=== PATIENT | female | born 1945 | race Caucasian/White ===

== ENCOUNTER 2017-08-10 04:49 | Inpatient (IN) | payer MEDICARE, OTHER ==
[~2017-08-10] VITALS: Ht 165.1 cm; Wt 54.9 kg
[2017-08-10] VITALS (12 sets, daily range): BP systolic 102–131; BP diastolic 52–74; PULSE 74–86; RESP 16–20; TEMP 97.5–98.2; O2SAT 94–100
[~2017-08-10 04:49] MED LIST: AMBI10TA PO; ANAS1 PO; BIOT10TA PO; CLAR500T95 PO; CYMB60CA PO; MOME17I; MYAM400T8 PO; RIFA300 PO; TOPI100 PO
[2017-08-10] MEDS ORDERED: ONDANSETRON HCL 4 MG/2 ML VIAL IV PUSH ONE (05:30)
--- NOTE | 2017-08-10 05:31 | PD ---
HPI Chief Complaint: Fall Time Seen by Provider: 05:22 Travel History International Travel<30 days: No Contact w/Intl Traveler<30days: No Traveled to known affect area: No History of Present Illness HPI 72-year-old female presents to the emergency department by private transportation for complaint of left-sided chest pain and shortness of breath. Patient states around midnight she had a non-syncopal slip and fall losing her balance and landing with her left chest wall against a table edge. Patient states since that time she's had marked pain on the left chest wall. Patient did take a leftover pain medication with minimal relief. Patient takes no blood thinning agents. Patient states she did not hit her head did not have loss of consciousness did not injure her neck. Patient denies any upper back pain abdominal pain and pelvis pain or extremity injury. Patient states pain is severe with movement or deep inspiratory effort. Patient is noted that she feel short of breath with activity or exertion. Patient states she has history of remote breast cancer with lumpectomy and chemotherapy remote bronchoscopy with accidental iatrogenic pneumothorax with chest tube and alpha-1 antitrypsin deficiency is followed by a specialist at [facility] as well as locally by Dr. Ganesh gomez her actuarial assistant. Patient denies any recent febrile illness no report of hemoptysis or productive cough. [facility] Past Medical History Narrative Medical Depression, breast cancer, chemotherapy, radiation therapy, lumpectomy, dyslipidemia, off 1 antitrypsin deficiency, pancreatitis, bronchiectasis; cholecystectomy appendectomy; no tobacco use; nursing notes reviewed Blood Disorders: No Depression: Yes Cancer: Yes (LEFT BREAST) Cardiovascular Problems: No High Cholesterol: Yes Chemotherapy: Yes (TAXOTERE CARBOPLATIN PROCEPTIN) Diabetes: No Endocrine: No Glaucoma: No Genitourinary: No Hepatitis: No Hiatal Hernia: No Hypertension: No Immune Disorder: No Medical other: Yes (HX PANCREATITIS) Musculoskeletal: Yes Reproductive: No Respiratory: Yes (BRONCHIECTASIS) Migraines: Yes Radiation Therapy: Yes Thyroid Disease: No ?: Not Past Surgical History Abdominal Surgery: Yes (CHOLECYSTECTOMY) Appendectomy: Yes Cholecystectomy: Yes Endocrine Surgery: Yes Eye Surgery: Yes (TEAR DUCT RECONSTRUCTION) Gynecologic Surgery: Yes (hysterectomy ) Oral Surgery: Yes (T & A) Pacemaker: No Other Surgery: Yes (LUMPECTOMY (L) BREAST) Social History Alcohol Use: Yes (DAILY) Tobacco Use: Yes Substance Use: No Allergies-Medications (Allergen,Severity, Reaction): Coded Allergies: ado-trastuzumab emtansine (Verified Allergy, Severe, EDEMA, NEUROPATHY, ) ampicillin (Verified Allergy, Severe, Hives, 08/10/17) PATIENT STATES SHE IS NOT ALLERGIC TO THIS MEDICINE, HER IS. simvastatin (Verified Allergy, Severe, STATINS - UNSPECIFIED, 08/10/17) trastuzumab (Verified Allergy, Severe, EDEMA, NEUROPATHY, 08/10/17) Reported Meds & Prescriptions Reported Meds & Active Scripts Active Reported Clarithromycin 500 Mg Tab 500 Mg PO BID Rifadin (Rifampin) 300 Mg Cap 300 Mg PO BID Myambutol (Ethambutol HCl) 400 Mg Tab 400 Mg PO TID Biotin 10 Mg Tab 10 Mg PO DAILY Nasonex (Mometasone Furoate) 17 Gm [place] 1 Spr NA DAILY Arimidex (Anastrozole) 1 Mg Tab 1 Mg PO HS Topamax (Topiramate) 100 Mg Tab 50 Mg PO DAILY Ambien (Zolpidem Tartrate) 10 Mg Tab 10 Mg PO HSPRN INSOMNIA Cymbalta (Duloxetine HCl) 60 Mg Cap 60 Mg PO DAILY Review of Systems Except as stated in HPI: all other systems reviewed are Neg General / Constitutional: No: Fever, Chills HENT: No: Congestion Cardiovascular: Positive: Chest Pain or Discomfort Respiratory: Positive: Shortness of Breath, Pleuritic Pain Gastrointestinal: No: Abdominal Pain Genitourinary: No: Flank Pain Musculoskeletal: No: Myalgias, Arthralgias Skin: No Rash Neurologic: No: Weakness Psychiatric: No: Anxiety Hematologic/Lymphatic: No: Easy Bruising Physical Exam Narrative GENERAL: Well-developed well-nourished elderly female in no acute respiratory distress intermittent splinting respiration with deep breath; GCS 15 SKIN: Warm and dry. HEAD: Normocephalic. Atraumatic no scalp soft tissue swelling. EYES: No scleral icterus. No injection or drainage. NECK: Supple, trachea midline. No JVD or lymphadenopathy. No midline tenderness to direct palpation along the cervical spine and no bony step-off. CARDIOVASCULAR: Regular rate and rhythm without murmurs, gallops, or rubs. RESPIRATORY: Breath sounds equal bilaterally; left-sided diminished breath sounds and palpable crepitus consistent with subcutaneous emphysema. No accessory muscle use. GASTROINTESTINAL: Abdomen soft, non-tender, nondistended. MUSCULOSKELETAL: No cyanosis, or edema. No pressure lower extremity numbness tingling weakness or deformity. Pulses 2+ to palpation. BACK: Nontender without obvious deformity. Mild upper medial left flank abrasion ecchymosis without reproducible CVA tenderness. Data Data Last Documented VS Vital Signs Date Time Temp Pulse Resp B/P (MAP) Pulse Ox O2 Delivery O2 Flow Rate FiO2 08/10/17 07:28 86 16 131/71 (91) 98 Nasal Cannula 2.00 08/10/17 04:56 97.6 Orders Orders ^ Saline [place] (08/10/17 05:22) Complete Blood Count With Diff (08/10/17 05:22) Act Partial Throm Time (Ptt) (08/10/17 05:22) Prothrombin Time / Inr (Pt) (08/10/17 05:22) Basic Metabolic Panel (Bmp) (08/10/17 05:22) Urinalysis - C+S If Indicated (08/10/17 05:22) Ondansetron Inj (Zofran Inj) (08/10/17 05:30) Chest, Expiration Only (08/10/17 ) Ct Thorax/ Chest Wo Iv Contras (08/10/17 06:11) Morphine Inj (Morphine Inj) (08/10/17 06:15) Sodium Chlor 0.9% 1000 Ml Inj (Ns 1000 M (08/10/17 07:00) Lidocaine Pf 1% Inj (Xylocaine-Mpf 1% In (08/10/17 07:00) Lidocaine Pf 1% Inj (Xylocaine-Mpf 1% In (08/10/17 07:00) Morphine Inj (Morphine Inj) (08/10/17 07:15) Chest, Single Ap (08/10/17 ) Electrocardiogram (08/10/17 ) Admit Order (Ed Use Only) (08/10/17 ) [employer] / Telemetry JI.Q8H (08/10/17 07:33) Diet Npo (08/10/17 Breakfast) Activity Bed Rest (08/10/17 07:33) Notify Dr: Other (08/10/17 07:33) Labs Laboratory Tests Test 08/10/17 05:30 White Blood Count 10.8 TH/MM3 Red Blood Count 4.56 MIL/MM3 Hemoglobin 13.7 GM/DL Hematocrit 41.1 % Mean Corpuscular Volume 90.2 FL Mean Corpuscular Hemoglobin 30.0 PG Mean Corpuscular Hemoglobin Concent 33.3 % Red Cell Distribution Width 13.7 % Platelet Count 253 TH/MM3 Mean Platelet Volume 8.9 FL Neutrophils (%) (Auto) 84.8 % Lymphocytes (%) (Auto) 8.5 % Monocytes (%) (Auto) 4.6 % Eosinophils (%) (Auto) 0.4 % Basophils (%) (Auto) 1.7 % Neutrophils # (Auto) 9.2 TH/MM3 Lymphocytes # (Auto) 0.9 TH/MM3 Monocytes # (Auto) 0.5 TH/MM3 Eosinophils # (Auto) 0.0 TH/MM3 Basophils # (Auto) 0.2 TH/MM3 CBC Comment DIFF FINAL Differential Comment Prothrombin Time 10.7 SEC Prothromb Time International Ratio 1.1 RATIO Activated Partial Thromboplast Time 24.9 SEC Blood Urea Nitrogen 26 MG/DL Creatinine 0.64 MG/DL Random Glucose 116 MG/DL Calcium Level 8.5 MG/DL Sodium Level 140 MEQ/L Potassium Level 3.7 MEQ/L Chloride Level 108 MEQ/L Carbon Dioxide Level 24.6 MEQ/L Anion Gap 7 MEQ/L Estimat Glomerular Filtration Rate 92 ML/MIN [facility] Medical Decision Making Medical Screen Exam Complete: Yes Emergency Medical Condition: Yes Medical Record Reviewed: Yes Interpretation(s) Last Impressions Chest CT 08/10/17 0611 Signed Impressions: Service Date/Time: Thursday, August 10, 2017 06:29 - CONCLUSION: 1. Large left pneumothorax. There is a pneumomediastinum. 2. Emphysematous change in the lower lungs. 3. Bronchiectasis in the lower lobes. 4. Left ninth and 10th rib fractures. Ramon Jenkins MD Chest X-Ray 08/10/17 0000 Signed Impressions: Service Date/Time: Thursday, August 10, 2017 05:42 - CONCLUSION: 1. Suspected large left pneumothorax with extensive subcutaneous emphysema. 2. Consolidation or atelectasis in the upper lungs bilaterally. The left upper lung is in the left perihilar region. Ramon Jenkins MD CBC & BMP Diagram 08/10/17 05:30 Calcium Level 8.5 Vital Signs Date Time Temp Pulse Resp B/P (MAP) Pulse Ox O2 Delivery O2 Flow Rate FiO2 08/10/17 07:28 86 16 131/71 (91) 98 Nasal Cannula 2.00 08/10/17 06:40 75 16 115/59 (77) 98 Nasal Cannula 2.00 08/10/17 06:10 84 16 104/64 (77) 99 Nasal Cannula 2.00 08/10/17 05:05 16 100 Room Air 08/10/17 05:00 75 16 115/58 (77) 100 08/10/17 04:56 97.6 81 20 130/61 (84) 95 Differential Diagnosis Chest wall contusion displaced rib fracture pneumothorax hemopneumothorax pneumomediastinum subcutaneous emphysema renal contusion pelvic contusion Narrative Course Patient placed on monitor IV access obtained specimens collected and sent for resulting imaging studies ordered; suspect patient has pneumothorax and will require chest tube placement; patient is not tachypneic, tachycardic, is normotensive with RA O2 saturations 92-98%. Expiratory chest x-ray shows extensive subcutaneous emphysema with what appears to be moderate size apical pneumothorax and possible scar tissue that the parent to the left chest wall with at least 2 minimally displaced rib fractures ; patient's blood pressure remains stable oxygenation remains 90-96% on room air patient is not tachycardic and does not have increased respiratory rate in order to clarify whether or not this is a emphysematous bleb with history of alpha-1 trypsin deficiency and COPD versus a loculated pneumothorax versus a moderate-sized pneumothorax with impaired disability related to the subcutaneous emphysema is unclear CT thorax without contrast ordered stat and patient's imaging study be discussed with radiologist. Fall from Dr. Schmidt reports left-sided pneumothorax which was noted on x-ray chest x-ray concurs with imaging with CT as this time patient appears stable for her definitive imaging. Patient is given a dose of Zofran 4 mg IV as well as a dose of morphine sulfate 2 mg iv pain relief. @ 6:[address] #28 [place] thoracostomy tube placed without incident post chest tube insertion chest x-ray shows tube in the sixth intercostal space with good lung reexpansion. Patient tolerated procedure well. Vital signs heart rate 81 O2 saturation 97% blood pressure Procedures Procedure Narrative CHEST TUBE THORACOSTOMY: The left chest was prepped with Betadine and sterilely draped. The area of the fifth intercostal interspace was infiltrated with 1% lidocaine plain. A 2 centimeter incision was made with a scalpel at the fifth intercostal space. Blunt dissection to the fourth intercostal interspace performed and the pleura was punctured with immediate vicente of air. Finger was inserted in the space and thoracostomy tube was placed, directed posteriorly and superiorly. Tube draining well. The thoracostomy tube was secured with suture. Sterile seal dressing placed. Patient tolerated procedure well. Physician Communication Physician Communication discussed with Dr Alford --- admit to his service to med surg w/ telemetry Diagnosis Primary Impression: Pneumothorax on left Additional Impressions: Pneumomediastinum Multiple fractures of ribs of left side Qualified Codes: S22.42XA - Multiple fractures of ribs, left side, initial encounter for closed fracture Emphysema lung Qualified Codes: J43.9 - Emphysema, unspecified [id number] deficiency Admitting Information Admitting Physician Requests: Admit Seema Fischer MD Aug 10, 2017 05:31
[2017-08-10 05:40] LABS: AUTOMATED NEUTROPHIL # 9.2 TH/MM3 (1.8-7.7); BASOPHIL # 0.2 TH/MM3 (0-0.2); BASOPHIL % 1.7 % (0.0-2.0); EOSINOPHIL % 0.4 % (0.0-4.0); HEMATOCRIT 41.1 % (35.0-46.0); HEMOGLOBIN 13.7 GM/DL (11.6-15.3); LYMPH % 8.5 % (9.0-44.0); LYMPHOCYTE # 0.9 TH/MM3 (1.0-4.8); MEAN CELL VOLUME 90.2 FL (80.0-100.0); MEAN CORPUSCULAR HGB CONC 33.3 % (32.0-36.0); MEAN PLATELET VOLUME 8.9 FL (7.0-11.0); MONO % 4.6 % (0.0-8.0); MONOCYTE # 0.5 TH/MM3 (0-0.9); NEUT % 84.8 % (16.0-70.0); PLATELET COUNT 253 TH/MM3 (150-450); RED BLOOD COUNT 4.56 MIL/MM3 (4.00-5.30); RED CELL DISTRIBUTION WIDTH 13.7 % (11.6-17.2); WHITE BLOOD COUNT 10.8 TH/MM3 (4.0-11.0)
[2017-08-10 05:50] LABS: CALCIUM 8.5 MG/DL (8.5-10.1)
[2017-08-10 05:51] LABS: BICARBONATE 24.6 MEQ/L (21.0-32.0)
[2017-08-10 05:52] LABS: INTERNATIONAL NORMALIZED RATIO 1.1 RATIO; PROTHROMBIN TIME - PATIENT 10.7 SEC (9.8-11.6)
[2017-08-10 05:54] LABS: CREATININE 0.64 MG/DL (0.50-1.00)
[2017-08-10] MEDS ORDERED: MORPHINE SULFATE 2 MG/ML INJ IV PUSH ONE ×2 (06:15→07:15)
--- NOTE | 2017-08-10 06:27 | RADRPT ---
EXAM DATE/TIME: 08/10/2017 05:42 [facility] COMPARISON: No previous studies available for comparison. INDICATIONS : Evaluate for left pneumothorax. Left sided chest pain post fall today MEDICAL HISTORY : Carcinoma, breast. SURGICAL HISTORY : Left breast lumpectomy ENCOUNTER: Initial ACUITY: 1 day PAIN SCORE: 10/10 LOCATION: Left chest FINDINGS: There is a suspected large pneumothorax seen at the left upper chest. There is extensive subcutaneous emphysema seen bilaterally being worse on the left. There is atelectasis or consolidation at the lef t upper lung in the left perihilar region. There is also increased density at the right upper lung. T here is more linear density seen at the right base. CONCLUSION: 1. Suspected large left pneumothorax with extensive subcutaneous emphysema. 2. Consolidation or atelectasis in the upper lungs bilaterally. The left upper lung is in the left pe rihilar region. Ramon Jenkins MD on August 10, 2017 at 6:13 Board Certified Radiologist. This report was verified electronically.
--- NOTE | 2017-08-10 06:52 | RADRPT ---
EXAM DATE/TIME: 08/10/2017 06:29 [facility] COMPARISON: No previous studies available for comparison. INDICATIONS : Stattus post fall 5 hours ago. Mid back and chest pain. Abnormal CXR RADIATION DOSE: 6.22 CTDIvol (mGy) MEDICAL HISTORY : Carcinoma, breast. Pancreatitis. bronchiectasis SURGICAL HISTORY : Appendectomy. Cholecystectomy.Hysterectomy. Lumpectomy left breast ENCOUNTER: Initial ACUITY: 1 day PAIN SCALE: 8/10 LOCATION: Bilateral middle back and chest TECHNIQUE: Volumetric scanning of the chest was performed. Using automated exposure control and adjustment of t he mA and/or kV according to patient size, radiation dose was kept as low as reasonably achievable to obtain optimal diagnostic quality images. DICOM format image data is available electronically for r eview and comparison. Follow-up recommendations for detected pulmonary nodules are based at a minimum on nodule size and pa tient risk factors according to Fleischner Society Guidelines. FINDINGS: LUNGS: There is a large pneumothorax seen in the left upper and anterior chest. Significant emphysematous ch javed in the upper lungs is not seen. There is emphysematous change in the lower lungs especially on t he right. There is increased density at the left upper lung likely related to some atelectasis given the pneumothorax. There some patchy density in the right midlung likely related to atelectasis or con solidation. There is bronchiectasis seen at the lower lobes bilaterally. There is a small 4 mm nodule seen in the posterior medial left chest likely related to the bronchiectasis and inflammatory change . PLEURAE: There is a large left pneumothorax. MEDIASTINUM: There is pneumomediastinum seen over the upper mediastinum. Significant adenopathy is not seen. AXILLAE: Subcutaneous emphysematous change is seen in the axillary regions and the chest bilateral edema being more prominent on the left. MUSCULOSKELETAL: There are posterior left ninth and 10th rib fractures. MISCELLANEOUS: The visualized upper abdominal organs demonstrate no acute abnormality. CONCLUSION: 1. Large left pneumothorax. There is a pneumomediastinum. 2. Emphysematous change in the lower lungs. 3. Bronchiectasis in the lower lobes. 4. Left ninth and 10th rib fractures. Ramon Jenkins MD on August 10, 2017 at 6:43 Board Certified Radiologist. This report was verified electronically.
[2017-08-10] MEDS ORDERED: LIDOCAINE HCL 1% PF 10 ML VIAL INFIL ONE (07:00)
[2017-08-10] MEDS ORDERED: LIDOCAINE HCL 1% PF 30 ML VIAL INFIL ONE (07:00)
--- NOTE | 2017-08-10 07:44 | RADRPT ---
EXAM DATE/TIME: 08/10/2017 07:20 [facility] COMPARISON: CT THORAX W/O CONTRAST, August 10, 2017, 6:29. CHEST EXPIRATION ONLY, August 10, 2017, 5:42. INDICATIONS : Post chest tube placement MEDICAL HISTORY : Carcinoma, breast. Pancreatitis. bronchiectasis SURGICAL HISTORY : Appendectomy. Cholecystectomy.Hysterectomy. Lumpectomy left breast ENCOUNTER: Subsequent ACUITY: 1 day PAIN SCORE: 0/10 LOCATION: Left chest FINDINGS: The examination demonstrates a chest tube in place in the left lung apex. There is resolution of the left apical pneumothorax. There is extensive subcutaneous emphysema. The heart is normal in size. There are COPD changes. There are bilateral upper lobe infiltrates. CONCLUSION: 1. A frontal placement of a chest tube with resolution of left apical pneumothorax. 2. Advanced COPD changes. 3. Bilateral upper lobe infiltrates which appear inflammatory. Bala Pack MD on August 10, 2017 at 7:41 Board Certified Radiologist. This report was verified electronically.
[2017-08-10] MEDS: SODIUM CHLOR 0.9% 1000 ML INJ 1,000 ML IV SCH ×2 (08:48→14:52)
[2017-08-10] MEDS ORDERED: SODIUM CHLORIDE 0.9% FLUSH 10 ML FLUSH IV FLUSH PRN (10:45)
[2017-08-10] MEDS: oxyCODONE/ACETAMINOPHEN 10 MG/325 MG TAB PO PRN ×2 (11:27→21:52)
[2017-08-10] MEDS ORDERED: ENALAPRILAT 1.25 MG/ML VIAL IV PUSH PRN (12:00)
[2017-08-10] MEDS: REMOVE OLD PATCH T-DERMAL SCH (12:00)
[2017-08-10] MEDS ORDERED: oxyCODONE/ACETAMINOPHEN 5 MG/325 MG TAB PO PRN (12:00)
[2017-08-10] MEDS ORDERED: ONDANSETRON HCL 4 MG/2 ML VIAL IV PUSH PRN (12:00)
[2017-08-10] MEDS: KETOROLAC TROMETHAMINE 30 MG/ML (IVP) VIAL IV PUSH SCH ×2 (13:05→17:23)
[2017-08-10] MEDS: LIDOCAINE HCL 5% PATCH T-DERMAL SCH (13:15)
[2017-08-10 13:58] LABS: BILIRUBIN, URINE NEG (NEG); BLOOD, URINE NEG (NEG); GLUCOSE,URINE NEG (NEG); KETONE, URINE NEG (NEG); NITRITE,URINE NEG (NEG); URINE LEUKOCYTE ESTERASE TRACE (NEG)
[2017-08-10 14:17] LABS: URINE COLOR YELLOW (YELLW/STRAW)
[2017-08-10 14:18] LABS: MUCUS URINE OCC /lpf (OCC); SQUAMOUS EPITHELIAL CELL URINE 0-5 /hpf (0-5)
[2017-08-10 14:20] LABS: AMORPHOUS SEDIMENT, URINE SMALL; BACTERIA, URINE OCC /hpf
[2017-08-10] MEDS ORDERED: RESP: ALBUTEROL 2.5 MG/IPRATROPIUM 0.5 MG NEB (PRN) NEB (14:45)
[2017-08-10] MEDS: METHOCARBAMOL 500 MG TAB PO SCH ×2 (14:46→21:50)
[2017-08-10] MEDS ORDERED: AZIT250T3 PO (15:29)
[2017-08-10] MEDS ORDERED: CYMB60CA PO (15:29)
[2017-08-10] MEDS ORDERED: TOPI50TA7 PO ×2 (15:29)
[2017-08-10] MEDS ORDERED: IMIT100T PO (15:29)
[2017-08-10] MEDS ORDERED: ZOLP5TAB3 PO (15:29)
[2017-08-10] MEDS ORDERED: SYMB80AE INH (15:29)
[2017-08-10] MEDS ORDERED: RESP: ALBUTEROL 2.5 MG/IPRATROPIUM 0.5 MG NEB (SCH) NEB (16:00)
[2017-08-10] MEDS: FAMOTIDINE 20 MG TAB PO SCH (21:50)
[2017-08-10] MEDS: DOCUSATE SODIUM 100 MG CAP PO SCH (21:52)
[2017-08-10] MEDS: MAGNESIUM HYDROXIDE SUSP 30 ML CUP PO SCH (21:57)
[2017-08-10] MEDS: RESP: ALBUTEROL 2.5 MG/IPRATROPIUM 0.5 MG NEB (SCH) NEB (22:49)
[2017-08-11] MEDS: KETOROLAC TROMETHAMINE 30 MG/ML (IVP) VIAL IV PUSH SCH ×4 (00:05→17:19)
[2017-08-11 00:49] VITALS: BP 95/50; PULSE 80; RESP 20; TEMP 98.8; O2SAT 94
[2017-08-11] MEDS: oxyCODONE/ACETAMINOPHEN 10 MG/325 MG TAB PO PRN ×3 (03:23→20:59)
[2017-08-11] MEDS: SODIUM CHLOR 0.9% 1000 ML INJ 1,000 ML IV SCH ×2 (03:25→17:20)
[2017-08-11 04:16] LABS: AUTOMATED NEUTROPHIL # 4.6 TH/MM3 (1.8-7.7); BASOPHIL % 0.6 % (0.0-2.0); EOSINOPHIL # 0.3 TH/MM3 (0-0.4); EOSINOPHIL % 4.3 % (0.0-4.0); HEMATOCRIT 37.6 % (35.0-46.0); HEMOGLOBIN 12.9 GM/DL (11.6-15.3); LYMPH % 27.9 % (9.0-44.0); LYMPHOCYTE # 2.1 TH/MM3 (1.0-4.8); MEAN CELL VOLUME 92.7 FL (80.0-100.0); MEAN CORPUSCULAR HEMOGLOBIN 31.9 PG (27.0-34.0); MEAN CORPUSCULAR HGB CONC 34.4 % (32.0-36.0); MEAN PLATELET VOLUME 8.9 FL (7.0-11.0); MONO % 5.9 % (0.0-8.0); MONOCYTE # 0.4 TH/MM3 (0-0.9); NEUT % 61.3 % (16.0-70.0); PLATELET COUNT 208 TH/MM3 (150-450); RED BLOOD COUNT 4.06 MIL/MM3 (4.00-5.30); RED CELL DISTRIBUTION WIDTH 14.4 % (11.6-17.2); WHITE BLOOD COUNT 7.5 TH/MM3 (4.0-11.0)
[2017-08-11 04:20] LABS: ALT (GPT) 19 U/L (10-53); AST (GOT) 24 U/L (15-37); BICARBONATE 25.2 MEQ/L (21.0-32.0); BLOOD UREA NITROGEN 14 MG/DL (7-18); CHLORIDE 110 MEQ/L (98-107); CREATININE 0.56 MG/DL (0.50-1.00); GLOMERULAR FILTRATION RATE 107 ML/MIN (>89); GLUCOSE,RANDOM 95 MG/DL (74-106); SODIUM (NA) 140 MEQ/L (136-145)
[2017-08-11 04:22] LABS: ALKALINE PHOSPHATASE 80 U/L (45-117); TOTAL BILIRUBIN ADULT 1.6 MG/DL (0.2-1.0); TOTAL PROTEIN 6.3 GM/DL (6.4-8.2)
[2017-08-11] MEDS: METHOCARBAMOL 500 MG TAB PO SCH ×3 (05:20→20:58)
[2017-08-11 05:58] VITALS: BP 97/51; PULSE 70; RESP 20; TEMP 98; O2SAT 97
--- NOTE | 2017-08-11 06:31 | RADRPT ---
EXAM DATE/TIME: 08/11/2017 06:15 [facility] COMPARISON: CHEST SINGLE AP, August 10, 2017, 7:20. INDICATIONS : Evaluate for pneumothorax- Left side chest tube MEDICAL HISTORY : Carcinoma, breast. Pancreatitis. Bronchiectasis SURGICAL HISTORY : Appendectomy. Cholecystectomy. Hysterectomy. Lumpectomy Left breast ENCOUNTER: Subsequent ACUITY: 2 days PAIN SCORE: 6/10 LOCATION: Bilateral chest FINDINGS: There is a minimal left pneumothorax seen. There is a left chest tube in place. This chest tube has b een pulled back since the prior exam. The pneumothorax measures 8 mm over the left apex. There is ext ensive subcutaneous emphysema seen on the left chest and the neck bilaterally. There is increased den sity at the left base. There is an increased density at the medial right upper lung. The heart size i s normal. CONCLUSION: 1. Minimal left pneumothorax. Left chest tube has been pulled back and is seen over the lateral mid c hest at this time. 2. Left lower lobe and right upper lung consolidation or atelectasis. Ramon Jenkins MD on August 11, 2017 at 6:25 Board Certified Radiologist. This report was verified electronically.
[2017-08-11 08:00] VITALS: BP 103/57; PULSE 81; RESP 18; TEMP 98; O2SAT 93
[2017-08-11] MEDS: MAGNESIUM HYDROXIDE SUSP 30 ML CUP PO SCH ×2 (08:52→20:58)
[2017-08-11] MEDS: DOCUSATE SODIUM 100 MG CAP PO SCH ×2 (08:52→20:57)
[2017-08-11] MEDS: FAMOTIDINE 20 MG TAB PO SCH ×2 (08:53→20:58)
[2017-08-11] MEDS: LIDOCAINE HCL 5% PATCH T-DERMAL SCH (08:55)
[2017-08-11] MEDS: REMOVE OLD PATCH T-DERMAL SCH (08:56)
[2017-08-11] MEDS: RESP: ALBUTEROL 2.5 MG/IPRATROPIUM 0.5 MG NEB (SCH) NEB ×3 (09:01→19:40)
[2017-08-11] MEDS ORDERED: PNEUMOCOCCAL POLYVALENT INJ 25 MCG/0.5 ML SYR IM ONE (10:00)
[2017-08-11 12:00] VITALS: BP 111/53; PULSE 71; RESP 18; TEMP 98.3; O2SAT 98
--- NOTE | 2017-08-11 12:24 | MH ---
cc: CRUZ AREVALO DATE OF ADMISSION: 08/10/2017 HISTORY OF PRESENT ILLNESS: This is a 72-year-old female who presented to the emergency room after slipping and falling. She fell onto the left chest. She was evaluated in the emergency room and found to have multiple rib fractures and a pneumothorax. The trauma service was requested for admission. The patient had a chest tube placed in the emergency room. She complains of left chest pain and pain with deep inspiration. PAST MEDICAL HISTORY: She has a past medical history significant for: 1. Depression. 2. Mriwa-0-[id number] deficiency. 3. Pancreatitis. PAST SURGICAL HISTORY: Significant for: 1. Lumpectomy. 2. Cholecystectomy. 3. Appendectomy. SOCIAL HISTORY: She does not smoke. She does drink alcohol. MEDICATIONS AT HOME: Can be obtained from the medical record. ALLERGIES: 1. AMPICILLIN. 2. SIMVASTATIN. FAMILY HISTORY: Noncontributory. PHYSICAL EXAMINATION: GENERAL: On exam, she is lying in bed in no acute distress. HEAD, EYES, EARS, NOSE, THROAT: Her pupils are equal and reactive. NECK: Trachea is midline. LUNGS: Respirations are clear. CHEST: Positive for crepitus. Chest tube in place on the left. GASTROINTESTINAL: Soft and nontender. NEUROLOGICAL: Nonfocal. MUSCULOSKELETAL: No deformities. RADIOLOGICAL STUDIES: CT of the chest reveals a left pneumothorax with left-sided rib fractures. ASSESSMENT: This is a patient status post fall with left pneumothorax and chest tube in place. RECOMMENDATIONS / PLAN: 1. Will provide pain management. 2. Will repeat chest x-ray. 3. Monitor pulmonary status. MD CHANO Gallegos/JERMAINE /11:53 AM /12:14 PM
--- NOTE | 2017-08-11 13:14 | RADRPT ---
EXAM DATE/TIME: 08/11/2017 12:47 [facility] COMPARISON: CHEST SINGLE AP, August 11, 2017, 6:15. INDICATIONS : Status post CT removal. MEDICAL HISTORY : Carcinoma, breast. Pancreatitis. Bronchiectasis SURGICAL HISTORY : Appendectomy. Cholecystectomy. Hysterectomy. Lumpectomy Left breast ENCOUNTER: Subsequent ACUITY: 2 days PAIN SCORE: 6/10 LOCATION: Bilateral chest FINDINGS: Single AP view of the chest. Left-sided chest tube no longer seen. Extensive subcutaneous emphysema a gain seen left greater than right. Small left apical pneumothorax unchanged. Patchy left lung base op acity unchanged. CONCLUSION: Left-sided chest tube no longer seen. Small left pneumothorax unchanged. Patchy left lung base opacit y also unchanged. Myron Norman MD on August 11, 2017 at 13:09 Board Certified Radiologist. This report was verified electronically.
--- NOTE | 2017-08-11 13:18 | HHI.PR ---
Subjective Subjective Notes CT got pulled on throughout the night and no longer in optimal positioning Denies SOB Complains of left rib pain Objective Vitals/I&O Vital Signs Date Time Temp Pulse Resp B/P (MAP) Pulse Ox O2 Delivery O2 Flow Rate FiO2 08/11/17 12:00 98.3 71 18 111/53 (72) 98 08/10/17 20:58 21 08/10/17 14:49 Nasal Cannula 2.00 Labs Laboratory Tests Test 08/10/17 13:45 08/11/17 03:50 Urine Color YELLOW Urine Turbidity CLEAR Urine pH 6.0 Urine Specific [place] 1.023 Urine Protein NEG Urine Glucose (UA) NEG Urine Ketones NEG Urine Occult Blood NEG Urine Nitrite NEG Urine Bilirubin NEG Urine Leukocyte Esterase TRACE Urine WBC 3-5 Urine Squamous Epithelial Cells 0-5 Urine Amorphous Sediment SMALL Urine Bacteria OCC Urine Mucus OCC Microscopic Urinalysis Comment CULT NOT INDICATED White Blood Count 7.5 Red Blood Count 4.06 Hemoglobin 12.9 Hematocrit 37.6 Mean Corpuscular Volume 92.7 Mean Corpuscular Hemoglobin 31.9 Mean Corpuscular Hemoglobin Concent 34.4 Red Cell Distribution Width 14.4 Platelet Count 208 Mean Platelet Volume 8.9 Neutrophils (%) (Auto) 61.3 Lymphocytes (%) (Auto) 27.9 Monocytes (%) (Auto) 5.9 Eosinophils (%) (Auto) 4.3 Basophils (%) (Auto) 0.6 Neutrophils # (Auto) 4.6 Lymphocytes # (Auto) 2.1 Monocytes # (Auto) 0.4 Eosinophils # (Auto) 0.3 Basophils # (Auto) 0.0 CBC Comment DIFF FINAL Differential Comment Blood Urea Nitrogen 14 Creatinine 0.56 Random Glucose 95 Total Protein 6.3 Albumin 3.0 Calcium Level 8.0 Alkaline Phosphatase 80 Aspartate Amino Transf (AST/SGOT) 24 Alanine Aminotransferase (ALT/SGPT) 19 Total Bilirubin 1.6 Sodium Level 140 Potassium Level 3.9 Chloride Level 110 Carbon Dioxide Level 25.2 Anion Gap 5 Estimat Glomerular Filtration Rate 107 Radiology Last Impressions Chest X-Ray 08/11/17 0600 Signed Impressions: Service Date/Time: Friday, August 11, 2017 06:15 - CONCLUSION: 1. Minimal left pneumothorax. Left chest tube has been pulled back and is seen over the lateral mid chest at this time. 2. Left lower lobe and right upper lung consolidation or atelectasis. Ramon Jenkins MD Chest CT 08/10/17 0611 Signed Impressions: Service Date/Time: Thursday, August 10, 2017 06:29 - CONCLUSION: 1. Large left pneumothorax. There is a pneumomediastinum. 2. Emphysematous change in the lower lungs. 3. Bronchiectasis in the lower lobes. 4. Left ninth and 10th rib fractures. Ramon Jenkins MD Narrative Exam GENERAL: 72 year old well-nourished, well developed femle lying in bed. SKIN: Warm and dry. HEAD: Atraumatic. Normocephalic. EYES: PERRL. ENT: No nasal bleeding or discharge. Mucous membranes pink and moist. NECK: Trachea midline. No JVD. CARDIOVASCULAR: Regular rate and rhythm. RESPIRATORY: No accessory muscle use. Lungs clear and diminished to auscultation. Breath sounds equal bilaterally. Left lateral chest tube secured to pleura vac system at -20 cm suction. No air leak noted. Palpable SQ air extending from left neck to the abdomen. GASTROINTESTINAL: Abdomen soft, non-tender, nondistended. + BS. MUSCULOSKELETAL: Extremities without cyanosis, or edema. No obvious deformities. MAEW, + perfused NEUROLOGICAL: Awake and alert. Normal speech. A/P Assessment and Plan [place]: Tripped over a [employer] container in the dark, striking her left chest on the container. No LOC. Came to the hospital several hours later d/t increased pain. INJURIES LEFT rib fx (9,10) LEFT PTX LEFT pulmonary contusion Pneumomediastinum PMHx: Breast CA, lumpectomy, chemo. Alpha-1 antitrypsin deficiency. Bronchiectasis. ETOH. Smoker, COPD 08/10: LEFT CT placement Diet: Regular Pulm: IS. acapella. Nebs Pain: Percocet. Robaxin. Toradol IV. Lidoderm patch. Activity: OOB. PT ordered GI: Pepcid 20 mg BID Bowel: Colace. MOM. LBM: 0 DVT: SCD's LEFT rib fxs, LEFT PTX, LEFT pulmonary contusion, Pneumomediastinum Supportive care 08/10: LEFT CT placement CXR from this morning shows chest tube is almost completely retracted. Small apical PTX noted. Chest tube removed at bedside CXR post chest tube removal today and in a.m. Monitor for worsening PTX and need for repeat chest tube insertion Pain control Pulmonary toileting OOB-PT ordered Plan of care discussed with patient, family and RN at bedside. Case management consulted to assist with discharge planning. Iván Trent Aug 11, 2017 13:18
[2017-08-11 16:00] VITALS: BP 112/56; PULSE 71; RESP 18; TEMP 97.6; O2SAT 96
[2017-08-11 20:00] VITALS: BP 144/61; PULSE 83; RESP 18; TEMP 98.1; O2SAT 98
[2017-08-12] VITALS (9 sets, daily range): BP systolic 123–139; BP diastolic 59–72; PULSE 69–105; RESP 18; TEMP 97.5–98.4; O2SAT 91–98
[2017-08-12] MEDS: KETOROLAC TROMETHAMINE 30 MG/ML (IVP) VIAL IV PUSH SCH ×4 (00:35→17:43)
[2017-08-12] MEDS: SODIUM CHLOR 0.9% 1000 ML INJ 1,000 ML IV SCH ×2 (05:26→17:04)
[2017-08-12] MEDS: METHOCARBAMOL 500 MG TAB PO SCH ×3 (05:26→21:31)
--- NOTE | 2017-08-12 05:50 | RADRPT ---
EXAM DATE/TIME: 08/12/2017 04:48 This report includes an Addendum and supersedes previous reports for this exam. [facility] COMPARISON: CHEST SINGLE AP, August 11, 2017, 12:47. INDICATIONS : Follow up pneumothorax. MEDICAL HISTORY : Carcinoma, breast. Pancreatitis. Bronchiectasis SURGICAL HISTORY : Appendectomy. Cholecystectomy. Hysterectomy. Lumpectomy Left breast ENCOUNTER: Subsequent ACUITY: 3 days PAIN SCORE: 6/10 LOCATION: Bilateral chest FINDINGS: There continues to be a pneumothorax or the left apex measuring 1.9 cm. This appears mildly larger on the current exam. The lungs appear hyperinflated. There is increased density at the left base with s ilhouetting of the left hemidiaphragm. There is linear scarring or atelectasis at the right midlung a nd right lower lung. There is extensive emphysema seen over the lower neck regions bilaterally and ov er the lateral left chest. CONCLUSION: 1. Persistent pneumothorax that appears mildly larger on the right. 2. Left lower lobe atelectasis or consolidation. 3. Hyperinflated lungs. Ramon Jenkins MD on August 12, 2017 at 5:46 Board Certified Radiologist. This report was verified electronically. ADDENDUM: The pneumothorax is clearly on the left. It is described as being on the right in the impression. The pneumothorax is definite on the left. Ramon Jenkins MD on August 13, 2017 at 13:59 Board Certified Radiologist. This report was verified electronically.
[2017-08-12] MEDS: REMOVE OLD PATCH T-DERMAL SCH (09:00)
[2017-08-12] MEDS: LIDOCAINE HCL 5% PATCH T-DERMAL SCH (09:00)
[2017-08-12] MEDS: MAGNESIUM HYDROXIDE SUSP 30 ML CUP PO SCH ×2 (09:00→21:00)
[2017-08-12] MEDS: RESP: ALBUTEROL 2.5 MG/IPRATROPIUM 0.5 MG NEB (SCH) NEB ×3 (09:12→20:08)
[2017-08-12] MEDS: FAMOTIDINE 20 MG TAB PO SCH ×2 (10:31→21:31)
[2017-08-12] MEDS: DOCUSATE SODIUM 100 MG CAP PO SCH ×2 (10:31→21:00)
--- NOTE | 2017-08-12 13:01 | HHI.PR ---
Subjective Subjective Notes CXR today shows PTX is larger Denies SOB Objective Vitals/I&O Vital Signs Date Time Temp Pulse Resp B/P (MAP) Pulse Ox O2 Delivery O2 Flow Rate FiO2 08/12/17 12:00 98.4 102 18 134/72 (92) 93 08/12/17 09:16 Nasal Cannula 2.00 08/10/17 20:58 21 Labs Laboratory Tests Test 08/10/17 05:30 08/10/17 13:45 08/11/17 03:50 Prothrombin Time 10.7 SEC Prothromb Time International Ratio 1.1 RATIO Activated Partial Thromboplast Time 24.9 SEC Urine Color YELLOW Urine Turbidity CLEAR Urine pH 6.0 Urine Specific [place] 1.023 Urine Protein NEG mg/dL Urine Glucose (UA) NEG mg/dL Urine Ketones NEG mg/dL Urine Occult Blood NEG Urine Nitrite NEG Urine Bilirubin NEG Urine Leukocyte Esterase TRACE Urine WBC 3-5 /hpf Urine Squamous Epithelial Cells 0-5 /hpf Urine Amorphous Sediment SMALL Urine Bacteria OCC /hpf Urine Mucus OCC /lpf Microscopic Urinalysis Comment CULT NOT INDICATED White Blood Count 7.5 TH/MM3 Red Blood Count 4.06 MIL/MM3 Hemoglobin 12.9 GM/DL Hematocrit 37.6 % Mean Corpuscular Volume 92.7 FL Mean Corpuscular Hemoglobin 31.9 PG Mean Corpuscular Hemoglobin Concent 34.4 % Red Cell Distribution Width 14.4 % Platelet Count 208 TH/MM3 Mean Platelet Volume 8.9 FL Neutrophils (%) (Auto) 61.3 % Lymphocytes (%) (Auto) 27.9 % Monocytes (%) (Auto) 5.9 % Eosinophils (%) (Auto) 4.3 % Basophils (%) (Auto) 0.6 % Neutrophils # (Auto) 4.6 TH/MM3 Lymphocytes # (Auto) 2.1 TH/MM3 Monocytes # (Auto) 0.4 TH/MM3 Eosinophils # (Auto) 0.3 TH/MM3 Basophils # (Auto) 0.0 TH/MM3 CBC Comment DIFF FINAL Differential Comment Blood Urea Nitrogen 14 MG/DL Creatinine 0.56 MG/DL Random Glucose 95 MG/DL Total Protein 6.3 GM/DL Albumin 3.0 GM/DL Calcium Level 8.0 MG/DL Alkaline Phosphatase 80 U/L Aspartate Amino Transf (AST/SGOT) 24 U/L Alanine Aminotransferase (ALT/SGPT) 19 U/L Total Bilirubin 1.6 MG/DL Sodium Level 140 MEQ/L Potassium Level 3.9 MEQ/L Chloride Level 110 MEQ/L Carbon Dioxide Level 25.2 MEQ/L Anion Gap 5 MEQ/L Estimat Glomerular Filtration Rate 107 ML/MIN Radiology Last Impressions Chest X-Ray 08/12/17599 Signed Impressions: Service Date/Time: Saturday, August 12, 2017 04:48 - CONCLUSION: 1. Persistent pneumothorax that appears mildly larger on the right. 2. Left lower lobe atelectasis or consolidation. 3. Hyperinflated lungs. Ramon Jenkins MD Chest CT 08/10/17610 Signed Impressions: Service Date/Time: Thursday, August 10, 2017 06:29 - CONCLUSION: 1. Large left pneumothorax. There is a pneumomediastinum. 2. Emphysematous change in the lower lungs. 3. Bronchiectasis in the lower lobes. 4. Left ninth and 10th rib fractures. Ramon Jenkins MD Last Impressions Chest X-Ray 08/11/17599 Signed Impressions: Service Date/Time: Friday, August 11, 2017 06:15 - CONCLUSION: 1. Minimal left pneumothorax. Left chest tube has been pulled back and is seen over the lateral mid chest at this time. 2. Left lower lobe and right upper lung consolidation or atelectasis. Ramon Jenkins MD Chest CT 08/10/17610 Signed Impressions: Service Date/Time: Thursday, August 10, 2017 06:29 - CONCLUSION: 1. Large left pneumothorax. There is a pneumomediastinum. 2. Emphysematous change in the lower lungs. 3. Bronchiectasis in the lower lobes. 4. Left ninth and 10th rib fractures. Ramon Jenkins MD Narrative Exam GENERAL: 72 year old well-nourished, well developed female lying in bed. SKIN: Warm and dry. HEAD: Atraumatic. Normocephalic. ENT: No nasal bleeding or discharge. Mucous membranes pink and moist. NECK: Trachea midline. No JVD. CARDIOVASCULAR: Regular rate and rhythm. RESPIRATORY: No accessory muscle use. Lungs clear and diminished to auscultation. Breath sounds equal bilaterally. Palpable SQ air extending from left neck to the abdomen. GASTROINTESTINAL: Abdomen soft, non-tender, nondistended. + BS. MUSCULOSKELETAL: Extremities without cyanosis, or edema. No obvious deformities. MAEW, + perfused NEUROLOGICAL: Awake and alert. Normal speech. A/P Assessment and Plan [place]: Tripped over a [employer] container in the dark, striking her left chest on the container. No LOC. Came to the hospital several hours later d/t increased pain. INJURIES LEFT rib fx (9,10) LEFT PTX LEFT pulmonary contusion Pneumomediastinum PMHx: Breast CA, lumpectomy, chemo. Alpha-1 antitrypsin deficiency. Bronchiectasis. ETOH. Smoker, COPD 08/10: LEFT CT placement Diet: Regular Pulm: IS. acapella. Nebs Pain: Percocet. Robaxin. Toradol IV. Lidoderm patch. Activity: OOB. PT ordered GI: Pepcid 20 mg BID Bowel: Colace. MOM. LBM: 0 DVT: SCD's LEFT rib fxs, LEFT PTX, LEFT pulmonary contusion, Pneumomediastinum Supportive care 08/10: LEFT CT placement 08/11: LEFT CT dislodged and removed CXR today shows enlarging PTX Dr Franklin spoke with the Radiologist who agrees to put in a CT guided CT today Pain control Pulmonary toileting OOB-PT ordered Plan of care discussed with patient at bedside. Case management consulted to assist with discharge planning. Iván Trent Aug 12, 2017 13:01
[2017-08-12] MEDS ORDERED: LORazepam 2 MG/ML VIAL ONE (13:58)
--- NOTE | 2017-08-12 14:24 | PD.RAD ---
Post Procedure Progress Note Pre Procedure Diagnosis: (1) Pxnkh-8-jqeotgsdyaw deficiency (2) Pneumothorax on left (3) Multiple fractures of ribs of left side Post Procedure Diagnosis: (1) Qaswn-[id number] deficiency (2) Pneumothorax on left (3) Multiple fractures of ribs of left side Procedure Date: Aug 12, 2017 Supervising Radiologist: Jj Rocha Proceduralist/Assist: RT Sindi(R)() Anesthesia: Local, Analgesia Plan of Activity Patient to Unit: Nursing Unit Patient Condition: Good See PACS Report for procedural detail/treatment Drainage Procedure Procedure 1 Imaging Guidance: Fluoroscopy Side: Left Procedure Type: Chest Tube Non-Tunneled Procedure: Placement [place]: 10 Drainage: Pleurovac (40 cm H2O) Jj Rocha MD Aug 12, 2017 14:24
--- NOTE | 2017-08-12 16:02 | MB ---
cc: Malou ELIZALDE DATE OF CONSULTATION 08/12/2017 HISTORY OF THE PRESENT ILLNESS Ms. Ayoub a 72-year-old white female whom I have followed for several years with chronic bronchiectasis and alpha one antitrypsin deficiency. She is also followed annually by Dr. Jenkins at the [facility], an alpha-1 specialist. She was a former smoker of less than 10 pack years and quit smoking over 30 years ago. She presented to the hospital after a fall, had persistent pain in her left chest and mild shortness of breath. Chest x-ray revealed a pneumothorax about 50% on the left and a chest tube was inserted. She was transferred to the main hospital and admitted to Dr. Boyer on the trauma service. Since admission she has had pain which is controlled, really very little shortness of breath. No cough or congestion. No purulent sputum or hemoptysis. PAST MEDICAL HISTORY 1. Breast cancer in [address] Rodriguez. 2. Emphysema / bronchiectasis. 3. Alpha-1 antitrypsin deficiency. 4. 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 No recurrence of that recently. 5. She also had a history of pancreatitis after an ERCP in 2000. No significant prior cardiovascular history. PAST SURGICAL HISTORY 1. She has had a prior cholecystectomy. 2. And surgery on her colon in the for diverticulitis. 3. Her breast cancer was treated with a lumpectomy and radiation. ALLERGIES HERCEPTIN, STATINS AND SHE DID RECEIVE ALLERGY IMMUNOTHERAPY FOR SEVERAL YEARS IN THE PAST. FAMILY HISTORY Father of heart disease, was diabetic. Mother had chronic lung disease and heart disease related to smoking. Two sons in good health. SOCIAL HISTORY living with her who she cares for. He has a disability. Smoking noted. No significant alcohol use and no unusual animal exposures. REVIEW OF SYSTEMS Negative other than that noted above. PHYSICAL EXAMINATION GENERAL: Awake, alert, comfortable at rest. Minimal discomfort only with activity. No shortness of breath at rest. VITAL SIGNS: Afebrile, pulse is 80, respirations 18-22. LYMPHATICS: No adenopathy in the neck or supraclavicular region. CHEST: Extensive subcutaneous air. No crepitance with the rib fractures on the left. Chest somewhat diminished but no congestion. No rhonchi. Heel-to-toe Regular rhythm. No harsh murmur. EXTREMITIES: No edema or cyanosis. ASSESSMENT AND PLAN Ms. Ayoub presents with several fractured ribs on the left and a pneumothorax, traumatic. She has underlying COPD and bronchiectasis which is stable. We will continue her on aerosol therapy, try to maintain good mobilization of secretions with an incentive and p.r.n. EZ-PAP but in light of the trauma not be overly aggressive with the pulmonary toilet. Oxygen as needed to maintain adequate saturations and aerosolized bronchodilators. R. MD RAFAEL Kamara/KK /2:15 PM /3:32 PM
--- NOTE | 2017-08-12 16:41 | RADRPT ---
EXAM DATE/TIME: 08/12/2017 15:52 [facility] COMPARISON: No previous studies available for comparison. INDICATIONS : Left sided pigtail chest tube placement. MEDICAL HISTORY : Carcinoma, breast. Pancreatitis. Lumpectomy SURGICAL HISTORY : Appendectomy. Cholecystectomy. ENCOUNTER: Subsequent ACUITY: 3 days PAIN SCORE: 10/10 LOCATION: Left chest FINDINGS: Left chest tube has been placed, tip at the apex. Previously seen pneumothorax is resolved. Chest wal l emphysema again noted. Patchy consolidation again seen right mid lung. There is a questionable pleural reflection on the rig ht but I see some pulmonary vascular markings peripheral to it. CONCLUSION: 1. Left pneumothorax has resolved after chest tube placement. 2. Potential small loculated pneumothorax right mid lung developing. Chest x-ray surveillance recomme nded. Ramon Preciado MD on August 12, 2017 at 16:36 Board Certified Radiologist. This report was verified electronically.
[2017-08-12] MEDS: oxyCODONE/ACETAMINOPHEN 10 MG/325 MG TAB PO PRN ×2 (17:40→21:32)
[2017-08-13] VITALS (10 sets, daily range): BP systolic 116–138; BP diastolic 60–85; PULSE 75–104; RESP 18–20; TEMP 97.8–99.3; O2SAT 93–98
[2017-08-13] MEDS: KETOROLAC TROMETHAMINE 30 MG/ML (IVP) VIAL IV PUSH SCH ×4 (01:26→16:43)
[2017-08-13] MEDS: METHOCARBAMOL 500 MG TAB PO SCH ×3 (05:19→22:18)
[2017-08-13] MEDS: SODIUM CHLOR 0.9% 1000 ML INJ 1,000 ML IV SCH (05:34)
--- NOTE | 2017-08-13 07:12 | RADRPT ---
EXAM DATE/TIME: 08/13/2017 05:51 [facility] COMPARISON: CHEST EXPIRATION ONLY, August 12, 2017, 15:52. INDICATIONS : Short of breath, evaluate left side pneumothorax and chest tube MEDICAL HISTORY : Carcinoma, breast. Pancreatitis. SURGICAL HISTORY : Appendectomy. Cholecystectomy. lumpectomy ENCOUNTER: Subsequent ACUITY: 4 - 6 days PAIN SCORE: 3/10 LOCATION: Left chest FINDINGS: On the left, small caliber chest tube remains in place at the apex. No perceptible pneumothorax. Ther e is mild consolidation at the left base unchanged. Left chest wall emphysema persists. No pneumothorax on the right but there is increasing consolidation in the upper lobe. There are bullo us emphysematous changes again seen. Heart size stable, within normal limits. CONCLUSION: 1. No perceptible pneumothorax on either side. Left chest tube remains in place. 2. No significant change left base consolidation. 3. Worsening right upper lobe infiltrate. Ramon Preciado MD on August 13, 2017 at 7:08 Board Certified Radiologist. This report was verified electronically.
[2017-08-13] MEDS: RESP: ALBUTEROL 2.5 MG/IPRATROPIUM 0.5 MG NEB (SCH) NEB ×3 (07:47→19:12)
[2017-08-13] MEDS: REMOVE OLD PATCH T-DERMAL SCH (09:00)
[2017-08-13] MEDS: MAGNESIUM HYDROXIDE SUSP 30 ML CUP PO SCH ×2 (09:00→22:18)
[2017-08-13] MEDS: DOCUSATE SODIUM 100 MG CAP PO SCH ×2 (09:33→22:17)
[2017-08-13] MEDS: FAMOTIDINE 20 MG TAB PO SCH ×2 (09:33→22:17)
[2017-08-13] MEDS: LIDOCAINE HCL 5% PATCH T-DERMAL SCH (09:37)
[2017-08-13] MEDS ORDERED: AZITHROMYCIN 250 MG TAB PO SCH (13:00)
--- NOTE | 2017-08-13 13:51 | HHI.PR ---
Subjective Subjective Notes Denies SOB S/P CT placement by IR yesterday, No PTX today on CXR Objective Vitals/I&O Vital Signs Date Time Temp Pulse Resp B/P (MAP) Pulse Ox O2 Delivery O2 Flow Rate FiO2 08/13/17 12:33 98.7 102 20 132/67 (88) 96 08/13/17 07:48 21 08/12/17 09:16 Nasal Cannula 2.00 Labs Laboratory Tests Test 08/10/17 05:30 08/10/17 13:45 08/11/17 03:50 Prothrombin Time 10.7 SEC Prothromb Time International Ratio 1.1 RATIO Activated Partial Thromboplast Time 24.9 SEC Urine Color YELLOW Urine Turbidity CLEAR Urine pH 6.0 Urine Specific [place] 1.023 Urine Protein NEG mg/dL Urine Glucose (UA) NEG mg/dL Urine Ketones NEG mg/dL Urine Occult Blood NEG Urine Nitrite NEG Urine Bilirubin NEG Urine Leukocyte Esterase TRACE Urine WBC 3-5 /hpf Urine Squamous Epithelial Cells 0-5 /hpf Urine Amorphous Sediment SMALL Urine Bacteria OCC /hpf Urine Mucus OCC /lpf Microscopic Urinalysis Comment CULT NOT INDICATED White Blood Count 7.5 TH/MM3 Red Blood Count 4.06 MIL/MM3 Hemoglobin 12.9 GM/DL Hematocrit 37.6 % Mean Corpuscular Volume 92.7 FL Mean Corpuscular Hemoglobin 31.9 PG Mean Corpuscular Hemoglobin Concent 34.4 % Red Cell Distribution Width 14.4 % Platelet Count 208 TH/MM3 Mean Platelet Volume 8.9 FL Neutrophils (%) (Auto) 61.3 % Lymphocytes (%) (Auto) 27.9 % Monocytes (%) (Auto) 5.9 % Eosinophils (%) (Auto) 4.3 % Basophils (%) (Auto) 0.6 % Neutrophils # (Auto) 4.6 TH/MM3 Lymphocytes # (Auto) 2.1 TH/MM3 Monocytes # (Auto) 0.4 TH/MM3 Eosinophils # (Auto) 0.3 TH/MM3 Basophils # (Auto) 0.0 TH/MM3 CBC Comment DIFF FINAL Differential Comment Blood Urea Nitrogen 14 MG/DL Creatinine 0.56 MG/DL Random Glucose 95 MG/DL Total Protein 6.3 GM/DL Albumin 3.0 GM/DL Calcium Level 8.0 MG/DL Alkaline Phosphatase 80 U/L Aspartate Amino Transf (AST/SGOT) 24 U/L Alanine Aminotransferase (ALT/SGPT) 19 U/L Total Bilirubin 1.6 MG/DL Sodium Level 140 MEQ/L Potassium Level 3.9 MEQ/L Chloride Level 110 MEQ/L Carbon Dioxide Level 25.2 MEQ/L Anion Gap 5 MEQ/L Estimat Glomerular Filtration Rate 107 ML/MIN Radiology Last Impressions Chest X-Ray 08/13/17 0000 Signed Impressions: Service Date/Time: Sunday, August 13, 2017 05:51 - CONCLUSION: 1. No perceptible pneumothorax on either side. Left chest tube remains in place. 2. No significant change left base consolidation. 3. Worsening right upper lobe infiltrate. Ramon Preciado MD Chest CT 08/10/17610 Signed Impressions: Service Date/Time: Thursday, August 10, 2017 06:29 - CONCLUSION: 1. Large left pneumothorax. There is a pneumomediastinum. 2. Emphysematous change in the lower lungs. 3. Bronchiectasis in the lower lobes. 4. Left ninth and 10th rib fractures. Ramon Jenkins MD Last Impressions Chest X-Ray 08/12/17 06 Signed Impressions: Service Date/Time: Saturday, August 12, 2017 04:48 - CONCLUSION: 1. Persistent pneumothorax that appears mildly larger on the right. 2. Left lower lobe atelectasis or consolidation. 3. Hyperinflated lungs. Ramon Jenkins MD Chest CT 08/10/17 06 Signed Impressions: Service Date/Time: Thursday, August 10, 2017 06:29 - CONCLUSION: 1. Large left pneumothorax. There is a pneumomediastinum. 2. Emphysematous change in the lower lungs. 3. Bronchiectasis in the lower lobes. 4. Left ninth and 10th rib fractures. aRmon Jenkins MD Last Impressions Chest X-Ray 08/11/17 06 Signed Impressions: Service Date/Time: Friday, August 11, 2017 06:15 - CONCLUSION: 1. Minimal left pneumothorax. Left chest tube has been pulled back and is seen over the lateral mid chest at this time. 2. Left lower lobe and right upper lung consolidation or atelectasis. Ramon Jenkins MD Chest CT 08/10/17 0611 Signed Impressions: Service Date/Time: Thursday, August 10, 2017 06:29 - CONCLUSION: 1. Large left pneumothorax. There is a pneumomediastinum. 2. Emphysematous change in the lower lungs. 3. Bronchiectasis in the lower lobes. 4. Left ninth and 10th rib fractures. Ramon Jenkins MD Narrative Exam GENERAL: 72 year old well-nourished, well developed female sitting on the side of the bed in no acute distress. SKIN: Warm and dry. HEAD: Atraumatic. Normocephalic. ENT: No nasal bleeding or discharge. Mucous membranes pink and moist. NECK: Trachea midline. No JVD. CARDIOVASCULAR: Regular rate and rhythm. RESPIRATORY: No accessory muscle use. Lungs clear and diminished to auscultation. Breath sounds equal bilaterally. Left lateral chest tube secured to pleura vac system at -20 cm suction. No airleak noted. Palpable SQ air extending from left neck to the abdomen. GASTROINTESTINAL: Abdomen soft, non-tender, nondistended. + BS. MUSCULOSKELETAL: Extremities without cyanosis, or edema. No obvious deformities. MAEW, + perfused NEUROLOGICAL: Awake and alert. Normal speech. A/P Assessment and Plan [place]: Tripped over a [employer] container in the dark, striking her left chest on the container. No LOC. Came to the hospital several hours later d/t increased pain. INJURIES LEFT rib fx (9,10) LEFT PTX LEFT pulmonary contusion Pneumomediastinum PMHx: Breast CA, lumpectomy, chemo. Alpha-1 antitrypsin deficiency. Bronchiectasis. ETOH. Smoker, COPD 08/10: LEFT CT placement 08/11: LEFT CT dislodged and removed 08/12: CT guided LEFT CT placement Diet: Regular Pulm: IS. acapella. Nebs Pain: Percocet. Robaxin. Toradol IV. Lidoderm patch. Activity: OOB. PT ordered GI: Pepcid 20 mg BID Bowel: Colace. MOM. LBM: 0 lactulose 1 today DVT: SCD's, Lovenox 40 QD LEFT rib fxs, LEFT PTX, LEFT pulmonary contusion, Pneumomediastinum Supportive care 08/10: LEFT CT placement 08/11: LEFT CT dislodged and removed 08/12: CT guided LEFT CT placement CXR today shows no PTX. Chest tube placed to water seal CXR in a.m. Pain control Pulmonary toileting OOB-PT ordered Lovenox Plan of care discussed with patient at bedside. Case management consulted to assist with discharge planning. Plan DC in 1-2 days when chest tube removed. Iván Trent Aug 13, 2017 13:51
[2017-08-13] MEDS ORDERED: LACTULOSE SYRUP 20 GM/30 ML CUP PO ONE (14:00)
[2017-08-13] MEDS: ENOXAPARIN SODIUM 40 MG/0.4 ML SYRINGE SQ SCH (14:07)
[2017-08-14] VITALS: BP 141/75; PULSE 99; RESP 18; TEMP 99.1; O2SAT 94
[2017-08-14] MEDS: KETOROLAC TROMETHAMINE 30 MG/ML (IVP) VIAL IV PUSH SCH ×3 (00:32→11:58)
[2017-08-14 04:48] VITALS: BP 151/84; PULSE 93; RESP 18; TEMP 97.2; O2SAT 93
[2017-08-14] MEDS: METHOCARBAMOL 500 MG TAB PO SCH ×2 (06:14→12:53)
--- NOTE | 2017-08-14 06:40 | RADRPT ---
EXAM DATE/TIME: 08/14/2017 05:40 [facility] COMPARISON: CHEST EXPIRATION ONLY, August 13, 2017, 5:51. CHEST SINGLE AP, August 12, 2017, 4:48. INDICATIONS : Short of breath, cough, evaluate chest tube and pneumothorax left side MEDICAL HISTORY : Carcinoma, breast. Pancreatitis. SURGICAL HISTORY : Appendectomy. Cholecystectomy. lumpectomy ENCOUNTER: Subsequent ACUITY: 4 - 6 days PAIN SCORE: 4/10 LOCATION: Bilateral chest FINDINGS: A single view of the chest demonstrates small caliber left chest tube with no significant pneumothora x. Subcutaneous air remains. Stable left basilar and right upper lobe consolidation. CONCLUSION: 1. Left chest tube without significant pneumothorax. Stable bilateral airspace disease predominantly at the left base and right upper lobe. Carmelo Donaldson MD on August 14, 2017 at 6:37 Board Certified Radiologist. This report was verified electronically.
[2017-08-14] MEDS: RESP: ALBUTEROL 2.5 MG/IPRATROPIUM 0.5 MG NEB (SCH) NEB ×2 (07:53→11:54)
[2017-08-14 07:56] VITALS: O2SAT 93
[2017-08-14 08:43] VITALS: BP 134/61; PULSE 104; RESP 18; TEMP 98.4; O2SAT 94
[2017-08-14] MEDS: REMOVE OLD PATCH T-DERMAL SCH (08:44)
[2017-08-14] MEDS: LIDOCAINE HCL 5% PATCH T-DERMAL SCH (08:44)
[2017-08-14] MEDS: FAMOTIDINE 20 MG TAB PO SCH (08:45)
[2017-08-14] MEDS: DOCUSATE SODIUM 100 MG CAP PO SCH (08:45)
[2017-08-14] MEDS: MAGNESIUM HYDROXIDE SUSP 30 ML CUP PO SCH (08:46)
[2017-08-14] MEDS ORDERED: METH500T3 PO (12:00)
[2017-08-14] MEDS ORDERED: OXYC1TAB63 PO (12:00)
[2017-08-14 12:45] VITALS: BP 135/72; PULSE 106; RESP 18; TEMP 97.7; O2SAT 95
[2017-08-14] MEDS: ENOXAPARIN SODIUM 40 MG/0.4 ML SYRINGE SQ SCH (12:54)
[2017-08-14] MEDS ORDERED: SENN8.6T13 PO (13:12)
--- NOTE | 2017-08-14 13:15 | HHI.DS ---
Discharge Summary Admission Date Aug 10, 2017 at 07:35 Discharge Date: Aug 14, 2017 Admitting Diagnosis left pneumthorax/pneumomediastinum;multiple rib fractures (1) Fall, initial encounter ICD Codes: W19.XXXA - Unspecified fall, initial encounter Diagnosis: Principal (2) Left pulmonary contusion ICD Codes: S27.321A - Contusion of lung, unilateral, initial encounter (3) Multiple fractures of ribs of left side ICD Codes: S22.42XA - Multiple fractures of ribs, left side, initial encounter for closed fracture Status: Acute (4) Pneumothorax on left ICD Codes: J93.9 - Pneumothorax, unspecified Status: Acute (5) Pneumomediastinum ICD Codes: J98.2 - Interstitial emphysema Status: Acute Brief History S/P Trauma: Fall CBC/BMP: 08/11/17 0350 08/11/17 0350 Imaging Last Impressions Chest X-Ray 08/14/17 0600 Signed Impressions: Service Date/Time: Monday, August 14, 2017 05:40 - CONCLUSION: 1. Left chest tube without significant pneumothorax. Stable bilateral airspace disease predominantly at the left base and right upper lobe. Carmelo Donaldson MD Chest CT 08/10/17 0611 Signed Impressions: Service Date/Time: Thursday, August 10, 2017 06:29 - CONCLUSION: 1. Large left pneumothorax. There is a pneumomediastinum. 2. Emphysematous change in the lower lungs. 3. Bronchiectasis in the lower lobes. 4. Left ninth and 10th rib fractures. Ramon Jenkins MD PE at Discharge GENERAL: 72 year old well-nourished, well developed female sitting on the side of the bed in no acute distress. SKIN: Warm and dry. HEAD: Atraumatic. Normocephalic. CARDIOVASCULAR: Regular rate and rhythm. RESPIRATORY: No accessory muscle use. Lungs clear and diminished to auscultation. Breath sounds equal bilaterally. Left lateral chest tube secured to pleura vac system. No air leak noted. Palpable SQ air extending from left neck to the abdomen. GASTROINTESTINAL: Abdomen soft, non-tender, nondistended. + BS. MUSCULOSKELETAL: Extremities without cyanosis, or edema. No obvious deformities. MAEW, + perfused NEUROLOGICAL: Awake and alert. Normal speech. Hospital Course [place]: Tripped over a [employer] container in the dark, striking her left chest on the container. No LOC. Came to the hospital several hours later d/t increased pain. INJURIES LEFT rib fx (9,10) LEFT PTX LEFT pulmonary contusion Pneumomediastinum PMHx: Breast CA, lumpectomy, chemo. Alpha-1 antitrypsin deficiency. Bronchiectasis. ETOH. Smoker, COPD 08/10: LEFT CT placement 08/11: LEFT CT dislodged and removed 08/12: CT guided LEFT CT placement 08/14: CT removed LEFT rib fxs, LEFT PTX, LEFT pulmonary contusion, Pneumomediastinum, hx COPD Supportive care 08/10: LEFT CT placement 08/11: LEFT CT dislodged and removed 08/12: CT guided LEFT CT placement Pulmonary consulted- F/U outpatient CXR today shows no PTX. Chest tube removed Keep current chest dressing in place for 48 hours, then may remove and shower. Pain control Pulmonary toileting- continue at home OOB-PT ordered- no home needs No strenuous activity or heavy lifting Plan of care discussed with patient at bedside. Patient is clear for discharge home. F/U with PCP in 1 week Pt Condition on Discharge: Stable Discharge Disposition: Discharge Home Discharge Instructions DIET: Follow Instructions for: As Tolerated, No Restrictions Activities you can perform: See Additionl Instruction Activities to Avoid: Strenuous Activity Other Activity Instructions: No heavy lifting. Iván Trent Aug 14, 2017 13:14
== END 2017-08-14 15:54 | disposition home or self-care (01) | DRG 200 ==
LOC: PHED 04:49 → PHEDA 07:35 → N05B 16:34
PROVIDERS: ADMIT Surgery; ATTEND Surgery
PROC: 0W9B30Z Drainage of Left Pleural Cavity with Drainage Device, Percutaneous Approach (ICD-10-PCS; principal; 2017-08-10)
PROC: 0W9B30Z Drainage of Left Pleural Cavity with Drainage Device, Percutaneous Approach (ICD-10-PCS; 2017-08-12)
DX: S27.0XXA Traumatic pneumothorax, initial encounter (principal); S22.42XA Multiple fractures of ribs, left side, initial encounter for closed fracture; E88.01 Alpha-1-antitrypsin deficiency; S27.321A Contusion of lung, unilateral, initial encounter; J98.11 Atelectasis; J47.9 Bronchiectasis, uncomplicated; T79.7XXA Traumatic subcutaneous emphysema, initial encounter; F32.9 Major depressive disorder, single episode, unspecified; W01.190A Fall on same level from slipping, tripping and stumbling with subsequent striking against furniture, initial encounter; Z85.3 Personal history of malignant neoplasm of breast; Z87.891 Personal history of nicotine dependence; Z92.21 Personal history of antineoplastic chemotherapy; Z92.3 Personal history of irradiation
CPT/HCPCS: 32551; 32557; 71045; 71250; 80048; 80053; 81001; 85025; 85610; 85730; 94150; 94640; 94664; 94667; 94668; 96374; 96375; 96376; C1729; C1769; J1650; J1885; J2060; J2270; J2405; J3010; J7030

== ENCOUNTER 2017-10-24 12:15 | Emergency (ER) | payer MEDICARE, OTHER ==
[~2017-10-24] VITALS: Ht 165.1 cm; Wt 51.0 kg
[~2017-10-24 12:15] MED LIST changes: -AMBI10TA PO; -ANAS1 PO; -BIOT10TA PO; -CLAR500T95 PO; +IMIT100T PO; +METH500T3 PO; -MOME17I; -MYAM400T8 PO; +OXYC1TAB63 PO; -RIFA300 PO; +SENN8.6T13 PO; +SYMB80AE INH; -TOPI100 PO; +TOPI50TA7 PO; +ZOLP5TAB3 PO
[2017-10-24] MEDS ORDERED: IOHEXOL 350 MG/ML 10 ML VIAL (for RAD DIAG) IVCONTRAST ONE (12:16)
[2017-10-24 12:31] VITALS: BP 141/79; PULSE 113; RESP 22; TEMP 98.5; O2SAT 95
[2017-10-24 12:51] VITALS: BP 152/89; PULSE 108; RESP 25; O2SAT 95
[2017-10-24] MEDS ORDERED: UMEC1AER INH (12:57)
--- NOTE | 2017-10-24 13:07 | PD ---
HPI Chief Complaint: Respiratory Symptoms Time Seen by Provider: 12:59 Travel History International Travel<30 days: No Contact w/Intl Traveler<30days: No Traveled to known affect area: No History of Present Illness HPI The patient is a 72-year-old female who presents to the emergency department for shortness of breath. The patient has a history of alpha-1 antitrypsin deficiency with previous left-sided pneumothorax requiring pigtail catheter placement. The patient is followed by a licensed funeral director in [place] who has had of the alpha-1 antitrypsin deficiency study as well as a local licensed funeral director, Dr. Villa Chun, and her primary physician, Dr. Edgar Mckenzie. The patient notes 3 weeks of shortness of breath, has been placed on Augmentin, then clarithromycin and steroids, as well as a cough syrup, however, continues to have symptoms. She notes shortness of breath that is worse with exertion, slightly alleviated at rest. She does note a productive cough producing green to brown sputum. She notes fevers at home as high as 101 with intermittent chills and sweats. The patient denies any significant edema to lower extremities and denies any history of pulmonary embolism, DVT, pleural effusion , or congestive heart failure. Symptoms are moderate. PFSH Past Medical History Blood Disorders: No Anxiety: No Depression: Yes Cancer: Yes (LEFT BREAST) Cardiovascular Problems: No High Cholesterol: Yes Chemotherapy: Yes (TAXOTERE CARBOPLATIN PROCEPTIN) Diabetes: No Endocrine: No Glaucoma: No Genitourinary: No Hepatitis: No Hiatal Hernia: No Hypertension: No Immune Disorder: No Medical other: Yes (HX PANCREATITIS) Musculoskeletal: No Reproductive: No Respiratory: Yes (BRONCHIECTASIS) Migraines: Yes Radiation Therapy: Yes Thyroid Disease: No Past Surgical History Abdominal Surgery: Yes (CHOLECYSTECTOMY) Appendectomy: Yes Cholecystectomy: Yes Endocrine Surgery: Yes Eye Surgery: Yes (TEAR DUCT RECONSTRUCTION) Gynecologic Surgery: Yes (hysterectomy ) Oral Surgery: Yes (T & A) Pacemaker: No Other Surgery: Yes (LUMPECTOMY (L) BREAST) Social History Alcohol Use: Yes (DAILY) Tobacco Use: Yes Substance Use: No Allergies-Medications (Allergen,Severity, Reaction): Coded Allergies: ado-trastuzumab emtansine (Verified Allergy, Severe, EDEMA, NEUROPATHY, ) ampicillin (Verified Allergy, Severe, Hives, 08/10/17) PATIENT STATES SHE IS NOT ALLERGIC TO THIS MEDICINE, HER IS. simvastatin (Verified Allergy, Severe, STATINS - UNSPECIFIED, 08/10/17) trastuzumab (Verified Allergy, Severe, EDEMA, NEUROPATHY, 08/10/17) Reported Meds & Prescriptions Reported Meds & Active Scripts Active Reported Anoro Ellipta Inh (Umeclidinium/Vilanterol) 62.5-25 Mcg/Act Aero 1 Puff INH DAILY Zolpidem (Zolpidem Tartrate) 5 Mg Tab 5 Mg PO HS PRN Topiramate 50 Mg Tab 50 Mg PO DAILY Imitrex (Sumatriptan Succinate) 100 Mg Tab 100 Mg PO ONCE PRN If a satisfactory response has not been obtained at 2 hours, a second dose may be administered Cymbalta DR (Duloxetine HCl) 60 Mg Capdr 60 Mg PO DAILY Review of Systems Except as stated in HPI: all other systems reviewed are Neg General / Constitutional: Positive: Fever, Chills HENT: No: Lightheadedness Cardiovascular: Positive: Dyspnea on exertion, No: Chest Pain or Discomfort Respiratory: Positive: Cough, Shortness of Breath Gastrointestinal: No: Nausea, Vomiting, Abdominal Pain Musculoskeletal: Positive: Weakness, No: Edema Physical Exam Narrative GENERAL: Awake, alert, pleasant 72-year-old female who appears her stated age and in mild respiratory distress. SKIN: Focused skin assessment warm/dry. HEAD: Atraumatic. Normocephalic. EYES: No injection or drainage. ENT: No nasal bleeding or discharge. Mucous membranes pink and moist. NECK: Trachea midline. No JVD. CARDIOVASCULAR: Regular, tachycardic with a heart rate in the 120s. RESPIRATORY: Tachypnea with a respiratory rate of 22. Diminished breath sounds in the right base. Mild supraclavicular retractions. GASTROINTESTINAL: Abdomen soft, non-tender, nondistended. No rebound tenderness. MUSCULOSKELETAL: No obvious deformities. No clubbing. No cyanosis. Trace lower extremity edema. NEUROLOGICAL: Awake and alert. No obvious cranial nerve deficits. Motor grossly within normal limits. Normal speech. PSYCHIATRIC: Appropriate mood and affect; insight and judgment normal. Data Data Last Documented VS Vital Signs Date Time Temp Pulse Resp B/P (MAP) Pulse Ox O2 Delivery O2 Flow Rate FiO2 10/24/17 12:51 108 25 152/89 (110) 95 Room Air 10/24/17 12:31 98.5 Orders Orders Sepsis Workup Initiated (10/24/17 ) Complete Blood Count With Diff (10/24/17 12:34) Comprehensive Metabolic Panel (10/24/17 12:34) Lactic Acid Sepsis Protocol (10/24/17 12:34) Blood Culture (10/24/17 12:34) Chest, Pa & Lat (10/24/17 12:34) Ct Pulmonary Angiogram (10/24/17 ) Electrocardiogram (10/24/17 13:00) Troponin I (10/24/17 14:02) Creatine Kinase (Cpk) (10/24/17 14:02) B-Type Natriuretic Peptide (10/24/17 14:02) Iohexol 350 Inj (Omnipaque 350 Inj) (10/24/17 12:16) Albuterol-Ipratropium Neb (Duoneb Neb) (10/24/17 17:30) Albuterol Hfa Inh (Proair Hfa Inh) (10/24/17 18:00) Ed Discharge Order (10/24/17 17:48) Labs Laboratory Tests Test 10/24/17 13:24 White Blood Count 16.5 TH/MM3 Red Blood Count 4.73 MIL/MM3 Hemoglobin 15.3 GM/DL Hematocrit 43.0 % Mean Corpuscular Volume 90.9 FL Mean Corpuscular Hemoglobin 32.2 PG Mean Corpuscular Hemoglobin Concent 35.5 % Red Cell Distribution Width 13.8 % Platelet Count 402 TH/MM3 Mean Platelet Volume 8.8 FL Neutrophils (%) (Auto) 89.6 % Lymphocytes (%) (Auto) 7.1 % Monocytes (%) (Auto) 3.1 % Eosinophils (%) (Auto) 0.1 % Basophils (%) (Auto) 0.1 % Neutrophils # (Auto) 14.8 TH/MM3 Lymphocytes # (Auto) 1.2 TH/MM3 Monocytes # (Auto) 0.5 TH/MM3 Eosinophils # (Auto) 0.0 TH/MM3 Basophils # (Auto) 0.0 TH/MM3 CBC Comment DIFF FINAL Differential Comment Blood Urea Nitrogen 18 MG/DL Creatinine 0.74 MG/DL Random Glucose 115 MG/DL Total Protein 7.9 GM/DL Albumin 3.5 GM/DL Calcium Level 8.9 MG/DL Alkaline Phosphatase 131 U/L Aspartate Amino Transf (AST/SGOT) 29 U/L Alanine Aminotransferase (ALT/SGPT) 36 U/L Total Bilirubin 1.2 MG/DL Sodium Level 139 MEQ/L Potassium Level 3.6 MEQ/L Chloride Level 108 MEQ/L Carbon Dioxide Level 22.9 MEQ/L Anion Gap 8 MEQ/L Estimat Glomerular Filtration Rate 78 ML/MIN Lactic Acid Level 2.0 mmol/L Total Creatine Kinase 44 U/L Troponin I LESS THAN 0.02 NG/ML B-Type Natriuretic Peptide 107 PG/ML MDM Medical Decision Making Medical Screen Exam Complete: Yes Emergency Medical Condition: Yes Medical Record Reviewed: Yes Interpretation(s) EKG reveals sinus tachycardia with a heart rate of 113. Nonspecific T-wave changes. Last Impressions Chest X-Ray 10/24/17 1234 Signed Impressions: Service Date/Time: Sunday, October 24, 2017 12:44 - CONCLUSION: Extensive edematous changes and peribronchial thickening as above worse in the right upper lobe. These findings are stable from the comparison study. Villa Pack MD FACR Laboratory Tests Test 10/24/17 13:24 White Blood Count 16.5 TH/MM3 Red Blood Count 4.73 MIL/MM3 Hemoglobin 15.3 GM/DL Hematocrit 43.0 % Mean Corpuscular Volume 90.9 FL Mean Corpuscular Hemoglobin 32.2 PG Mean Corpuscular Hemoglobin Concent 35.5 % Red Cell Distribution Width 13.8 % Platelet Count 402 TH/MM3 Mean Platelet Volume 8.8 FL Neutrophils (%) (Auto) 89.6 % Lymphocytes (%) (Auto) 7.1 % Monocytes (%) (Auto) 3.1 % Eosinophils (%) (Auto) 0.1 % Basophils (%) (Auto) 0.1 % Neutrophils # (Auto) 14.8 TH/MM3 Lymphocytes # (Auto) 1.2 TH/MM3 Monocytes # (Auto) 0.5 TH/MM3 Eosinophils # (Auto) 0.0 TH/MM3 Basophils # (Auto) 0.0 TH/MM3 CBC Comment DIFF FINAL Differential Comment Blood Urea Nitrogen 18 MG/DL Creatinine 0.74 MG/DL Random Glucose 115 MG/DL Total Protein 7.9 GM/DL Albumin 3.5 GM/DL Calcium Level 8.9 MG/DL Alkaline Phosphatase 131 U/L Aspartate Amino Transf (AST/SGOT) 29 U/L Alanine Aminotransferase (ALT/SGPT) 36 U/L Total Bilirubin 1.2 MG/DL Sodium Level 139 MEQ/L Potassium Level 3.6 MEQ/L Chloride Level 108 MEQ/L Carbon Dioxide Level 22.9 MEQ/L Anion Gap 8 MEQ/L Estimat Glomerular Filtration Rate 78 ML/MIN Lactic Acid Level 2.0 mmol/L Differential Diagnosis Differential diagnosis includes pneumonia, bronchitis, alpha-1 antitrypsin deficiency, COPD exacerbation, pleural effusion, pulmonary edema, pulmonary embolism, ACS, pericardial effusion, cardiomyopathy, pneumothorax. Narrative Course IV was established, labs are drawn and sent, and the patient was placed on cardiac telemetry monitoring and continuous pulse oximetry monitoring. Chest x- ray was obtained. Blood culture lactic acid were sent to lab. Chest x-ray reveals chronic peribronchial thickening and congestion, similar to previous x- ray. BNP was minimally elevated at 107. Troponin is unremarkable. CT pulmonary angiogram was ordered to rule out PE, there is no evidence of pulmonary embolism. The patient's heart rate goes down into the 80s and 90s at rest, does elevate to approximately 110 with activity. Patient's workup is unremarkable, she may have bronchitis and/or COPD changes secondary to alpha-1 antitrypsin deficiency. The patient states that her licensed funeral director, Dr. Villa Chun wanted to know the results of her workup. Therefore, a call was placed to Dr. Chun at 4:44 PM. I discussed the patient with Dr. Chun who recommends increasing her prednisone to 30 mg twice a day, using albuterol inhaler at home , and she is to call the office in the morning on so she can be evaluated by Dr. Chun in the office on Sunday. Diagnosis Primary Impression: Dyspnea Qualified Codes: R06.00 - Dyspnea, unspecified Additional Impressions: Bronchitis COPD exacerbation Patient Instructions: General Instructions Additional Instructions: Call Dr. Chun's office in the morning to make an appointment to be seen on Sunday. Increase prednisone to 30 mg twice a day. Albuterol inhaler 1-2 puffs every 4-6 hours as needed. Continue antibiotic. Return if symptoms worsen or progress. Med/Other Pt SpecificInfo: Prescription(s) given Scripts Albuterol 8.5 GM Inh (Proair Hfa 8.5 GM Inh) 90 Mcg/Act Aer 2 PUFF INH Q4-6H Y for SHORTNESS OF BREATH, #1 INHALER 0 Refills 108 mcg/actuation Prov: Pritesh Cortes MD 10/24/17 Prednisone (Prednisone) 10 Mg Tab 30 MG PO BID for 5 Days, #30 TAB 0 Refills Prov: Pritesh Cortes MD 10/24/17 Disposition: 03 DISCHARGE TO SNF Condition: Stable Pritesh Cortes MD Oct 24, 2017 13:07
--- NOTE | 2017-10-24 13:44 | RADRPT ---
EXAM DATE/TIME: 10/24/2017 12:44 [facility] COMPARISON: CHEST SINGLE AP, August 14, 2017, 5:40. INDICATIONS : Cough. Short of breath. Congestion. MEDICAL HISTORY : Carcinoma, breast. Pancreatitis. SURGICAL HISTORY : Appendectomy. Cholecystectomy. Lumpectomy. ENCOUNTER: Subsequent ACUITY: 2 weeks PAIN SCORE: 1/10 LOCATION: Bilateral chest FINDINGS: Moderate hyperinflation with bullous changes worse in the apices. Scattered areas of parabronchial t hickening and pleural thickening. No evidence consolidation, pneumothorax or pleural effusion. CONCLUSION: Extensive edematous changes and peribronchial thickening as above worse in the right upper lobe. The se findings are stable from the comparison study. Villa Pack MD FACR on October 24, 2017 at 13:40 Board Certified Radiologist. This report was verified electronically.
[2017-10-24 13:47] LABS: AUTOMATED NEUTROPHIL # 14.8 TH/MM3 (1.8-7.7); BASOPHIL % 0.1 % (0.0-2.0); EOSINOPHIL % 0.1 % (0.0-4.0); HEMOGLOBIN 15.3 GM/DL (11.6-15.3); LYMPH % 7.1 % (9.0-44.0); LYMPHOCYTE # 1.2 TH/MM3 (1.0-4.8); MEAN CELL VOLUME 90.9 FL (80.0-100.0); MEAN CORPUSCULAR HEMOGLOBIN 32.2 PG (27.0-34.0); MEAN CORPUSCULAR HGB CONC 35.5 % (32.0-36.0); MEAN PLATELET VOLUME 8.8 FL (7.0-11.0); MONO % 3.1 % (0.0-8.0); MONOCYTE # 0.5 TH/MM3 (0-0.9); NEUT % 89.6 % (16.0-70.0); PLATELET COUNT 402 TH/MM3 (150-450); RED BLOOD COUNT 4.73 MIL/MM3 (4.00-5.30); RED CELL DISTRIBUTION WIDTH 13.8 % (11.6-17.2); WHITE BLOOD COUNT 16.5 TH/MM3 (4.0-11.0)
[2017-10-24 13:55] LABS: ALBUMIN 3.5 GM/DL (3.4-5.0); ALT (GPT) 36 U/L (10-53); AST (GOT) 29 U/L (15-37); BICARBONATE 22.9 MEQ/L (21.0-32.0); BLOOD UREA NITROGEN 18 MG/DL (7-18); CALCIUM 8.9 MG/DL (8.5-10.1); CHLORIDE 108 MEQ/L (98-107); CREATININE 0.74 MG/DL (0.50-1.00); GLOMERULAR FILTRATION RATE 78 ML/MIN (>89); GLUCOSE,RANDOM 115 MG/DL (74-106); SODIUM (NA) 139 MEQ/L (136-145)
[2017-10-24 13:58] LABS: ALKALINE PHOSPHATASE 131 U/L (45-117); TOTAL BILIRUBIN ADULT 1.2 MG/DL (0.2-1.0); TOTAL PROTEIN 7.9 GM/DL (6.4-8.2)
[2017-10-24 15:39] LABS: TROPONIN I LESS THAN 0.02 NG/ML (0.02-0.05)
--- NOTE | 2017-10-24 16:20 | RADRPT ---
EXAM DATE/TIME: 10/24/2017 15:16 [facility] COMPARISON: No previous studies available for comparison. INDICATIONS : Increasing shortness of breath, cough. IV CONTRAST: 72 cc Omnipaque 350 (iohexol) IV RADIATION DOSE: 5.34 CTDIvol (mGy) MEDICAL HISTORY : Carcinoma, breast. Pancreatitis. SURGICAL HISTORY : Appendectomy. Cholecystectomy.Hysterectomy. ENCOUNTER: Initial ACUITY: 3 weeks PAIN SCALE: 0/10 LOCATION: Bilateral chest TECHNIQUE: Volumetric scanning of the chest was performed using a pulmonary embolism protocol MIP images were re constructed. Using automated exposure control and adjustment of the mA and/or kV according to patien t size, radiation dose was kept as low as reasonably achievable to obtain optimal diagnostic quality images. DICOM format image data is available electronically for review and comparison. Follow-up recommendations for detected pulmonary nodules are based at a minimum on nodule size and pa tient risk factors according to Fleischner Society Guidelines. FINDINGS: PULMONARY ARTERIES: No filling defects are seen in the pulmonary arteries through the segmental level. LUNGS: Severe baseline emphysema. Bronchiectasis and patchy interstitial infiltrates. Basilar pleuroparenchy mal scarring PLEURAE: There is no pleural thickening or pleural effusion. MEDIASTINUM: There is good visualization of the great vessels of the middle mediastinum. No evidence of mediastin al or hilar adenopathy/mass. MUSCULOSKELETAL: Within normal limits for patient age. MISCELLANEOUS: The visualized upper abdominal organs demonstrate no acute abnormality. CONCLUSION: No evidence of pulmonary embolism Ramon Gill MD on October 24, 2017 at 16:15 Board Certified Radiologist. This report was verified electronically.
[2017-10-24] MEDS ORDERED: RESP: ALBUTEROL 2.5 MG/IPRATROPIUM 0.5 MG NEB (SCH) NEB ONE (17:30)
[2017-10-24] MEDS ORDERED: PRED10 PO (17:51)
[2017-10-24] MEDS ORDERED: ALBUAER3 INH (17:51)
[2017-10-24] MEDS ORDERED: ALBUTEROL SULFATE 90 MCG/ACT HFA 8 GM INHALER INH ONE (18:00)
[2017-10-24 18:16] VITALS: BP 141/76; PULSE 94; RESP 21; O2SAT 95
--- NOTE | 2017-10-25 20:25 | EKG ---
Date Performed: 10/24/2017 Time Performed: 13:00:20 PTAGE: 72 years EKG: SINUS TACHYCARDIA MARKED RIGHT AXIS DEVIATION MODERATE INTRAVENTRICULAR CONDUCTION DELAY NO NSPECIFIC T-WAVE ABNORMALITY Compared to previous tracing, sinus rate is faster. Nonspecific changes are more prominent ABNORMAL ECG PREVIOUS TRACING : 11/01/2011 10.43 DOCTOR: Vin Mendez Interpretating Date/Time 10/25/2017 20:23:20
== END 2017-10-24 18:15 | disposition home or self-care (01) ==
LOC: NEPE 12:15
DX: J44.1 Chronic obstructive pulmonary disease with (acute) exacerbation (principal); R00.0 Tachycardia, unspecified; R94.31 Abnormal electrocardiogram [ECG] [EKG]; E88.01 Alpha-1-antitrypsin deficiency; E78.00 Pure hypercholesterolemia, unspecified; Z87.19 Personal history of other diseases of the digestive system; Z72.0 Tobacco use; Z79.899 Other long term (current) drug therapy; Z88.0 Allergy status to penicillin
CPT/HCPCS: 71046; 71275; 80053; 82550; 83605; 83880; 84484; 85025; 87040; 93005; 94664; 99284; Q9967